=== PATIENT | female | born 1965 | race Caucasian/White ===

== ENCOUNTER 2016-11-28 16:12 | Inpatient (IN) | payer OTHER ==
[~2016-11-28] VITALS: Ht 165.1 cm; Wt 127.9 kg
[2016-11-28 16:50] LABS: microscopic required? YES; urine erythrocyte NEGATIVE (NEGATIVE)
[2016-11-28 16:51] LABS: BASOPHIL % 0.5 % (0-2); PLATELET COUNT 315 x10^3mcL (130-400)
[2016-11-28 16:59] LABS: AMPHETAMINE QUAL UR NONE DETECTED (NEG <=1000)
[2016-11-28 17:06] LABS: CALCIUM 8.9 mg/dL (8.5-10.1); CARBON DIOXIDE 26.7 mmol/L (21-32); CHLORIDE SERUM 103 mmol/L (98-107); CREATININE SERUM 1.1 mg/dL (0.6-1.0); GFR1 55 mL/min; GLUCOSE SERUM 163 mg/dL (74-106); POTASSIUM SERUM 3.9 mmol/L (3.5-5.1); SODIUM SERUM 137 mmol/L (136-145)
[2016-11-28 17:10] LABS: ALBUMIN 3.6 g/dL (3.4-5.0); ALKALINE PHOSPHATASE 64 U/L (46-116); ALT/SGPT 15 U/L (14-59); AST/SGOT 20 U/L (15-37); BILIRUBIN TOTAL 0.27 mg/dL (0.20-1.00); TOTAL PROTEIN, SERUM 7.9 g/dL (6.4-8.2)
[2016-11-28] MEDS ORDERED: METFORMIN HCL1000 MG GT (17:38)
[2016-11-28] MEDS ORDERED: INVOKAMET PO (17:38)
[2016-11-28] MEDS ORDERED: GOOD SENSE OMEP20 MG PO (17:39)
[2016-11-28] MEDS ORDERED: FERROUS SULFAT325 M2 PO (17:39)
[2016-11-28] MEDS ORDERED: LASIX40 MG PO (17:40)
[2016-11-28] MEDS ORDERED: LEVOXYL0.05 MG PO (17:40)
[2016-11-28] MEDS ORDERED: ENALAPRIL MALEA10 MG PO (17:41)
[2016-11-28] MEDS ORDERED: ZOCOR40 MG PO (17:41)
[2016-11-28] MEDS ORDERED: IBUPROFEN400 MG PO (17:42)
[2016-11-28] MEDS ORDERED: ULTRAM50 MG PO (17:42)
[2016-11-28] MEDS ORDERED: NEURONTIN400 MG PO (17:43)
[2016-11-28] MEDS ORDERED: ACT30 PO (17:44)
[2016-11-28] MEDS ORDERED: BENTYL10 MG PO (17:44)
[2016-11-28] MEDS ORDERED: VENLAFAXINE HY150 MG PO (17:46)
[2016-11-28] MEDS ORDERED: PAROXETINE HCL40 M1 PO (17:47)
[2016-11-28 18:01] VITALS: BP 126/67
[2016-11-28] MEDS ORDERED: PHOSLO667 MG PO (18:41)
[2016-11-28] MEDS ORDERED: [UNRECOGNIZED DRUG - OTHER] PO (18:41)
[2016-11-28] MEDS ORDERED: GLUCOSAMINE CH1 EAC2 PO (18:41)
[2016-11-28] MEDS ORDERED: VITAMIN D32000 I2 PO (18:42)
[2016-11-28 20:18] LABS: CHOLESTEROL/HDL RATIO 1.5; MAGNESIUM 1.6 mg/dL (1.8-2.4); PHOSPHOROUS 4.2 mg/dL (2.5-4.9)
[2016-11-28 20:25] LABS: T3 TOTAL 0.79 ng/mL
[2016-11-28 20:38] LABS: FREE T4 1.16 ng/dL (0.76-1.46); FREE THYROXINE INDEX 3.1 ug/dL (1.4-4.5); T4(THYROXINE) 8.5 ug/dL (4.7-13.3)
[2016-11-28 20:45] VITALS: BP 157/86
[2016-11-28 21:25] VITALS: BP 151/90
[2016-11-28 21:35] VITALS: BP 154/80
[2016-11-28 22:31] VITALS: BP 151/90
[2016-11-28 23:50] VITALS: BP 137/69
[2016-11-29] VITALS (17 sets, daily range): BP systolic 86–129; BP diastolic 53–71
[2016-11-29 05:32] LABS: BASOPHIL % 0.4 % (0-2); PLATELET COUNT 274 x10^3mcL (130-400); RED CELL DISTRIBUTION WIDTH 13.1 % (11.5-14.5)
[2016-11-29 05:37] LABS: CALCIUM 8.4 mg/dL (8.5-10.1); CHLORIDE SERUM 105 mmol/L (98-107); CREATININE SERUM 0.9 mg/dL (0.6-1.0); GFR1 > 60 mL/min; GLUCOSE SERUM 72 mg/dL (74-106); SODIUM SERUM 131 mmol/L (136-145)
[2016-11-30] VITALS (11 sets, daily range): BP systolic 98–153; BP diastolic 49–98
[2016-11-30 05:45] LABS: BASOPHIL % 0.3 % (0-2); PLATELET COUNT 215 x10^3mcL (130-400); RED CELL DISTRIBUTION WIDTH 13.4 % (11.5-14.5)
[2016-11-30 05:57] LABS: CALCIUM 8.2 mg/dL (8.5-10.1); CARBON DIOXIDE 22.3 mmol/L (21-32); CREATININE SERUM 1.1 mg/dL (0.6-1.0); MAGNESIUM 2.1 mg/dL (1.8-2.4); POTASSIUM SERUM 3.5 mmol/L (3.5-5.1)
[2016-12-01] VITALS (9 sets, daily range): BP systolic 104–156; BP diastolic 55–104
[2016-12-01 06:05] LABS: BASOPHIL % 0.3 % (0-2); PLATELET COUNT 242 x10^3mcL (130-400); RED CELL DISTRIBUTION WIDTH 12.9 % (11.5-14.5)
[2016-12-01 06:09] LABS: CALCIUM 8.3 mg/dL (8.5-10.1); CARBON DIOXIDE 23.1 mmol/L (21-32); CHLORIDE SERUM 105 mmol/L (98-107); GFR1 > 60 mL/min; GLUCOSE SERUM 156 mg/dL (74-106); POTASSIUM SERUM 3.6 mmol/L (3.5-5.1); SODIUM SERUM 139 mmol/L (136-145)
[2016-12-02] VITALS (14 sets, daily range): BP systolic 116–162; BP diastolic 66–89
[2016-12-02 05:39] LABS: BASOPHIL % 0.3 % (0-2); PLATELET COUNT 255 x10^3mcL (130-400); RED CELL DISTRIBUTION WIDTH 13.3 % (11.5-14.5)
[2016-12-02 05:49] LABS: CALCIUM 8.7 mg/dL (8.5-10.1); CARBON DIOXIDE 25.3 mmol/L (21-32); CREATININE SERUM 1.1 mg/dL (0.6-1.0); POTASSIUM SERUM 3.6 mmol/L (3.5-5.1)
[2016-12-03] VITALS (18 sets, daily range): BP systolic 115–140; BP diastolic 51–88
[2016-12-03 05:27] LABS: BASOPHIL % 0.1 % (0-2); PLATELET COUNT 242 x10^3mcL (130-400); RED CELL DISTRIBUTION WIDTH 12.6 % (11.5-14.5)
[2016-12-03 05:36] LABS: CALCIUM 8.3 mg/dL (8.5-10.1); CARBON DIOXIDE 24.8 mmol/L (21-32); CHLORIDE SERUM 108 mmol/L (98-107); CREATININE SERUM 0.9 mg/dL (0.6-1.0); GFR1 > 60 mL/min; GLUCOSE SERUM 173 mg/dL (74-106); POTASSIUM SERUM 3.9 mmol/L (3.5-5.1); SODIUM SERUM 141 mmol/L (136-145)
[2016-12-04] VITALS (17 sets, daily range): BP systolic 130–156; BP diastolic 63–78
[2016-12-04 05:03] LABS: PLATELET COUNT 285 x10^3mcL (130-400)
[2016-12-04 05:06] LABS: BASOPHIL % 0 % (0-2)
[2016-12-04 05:13] LABS: CALCIUM 8.3 mg/dL (8.5-10.1); CARBON DIOXIDE 26.5 mmol/L (21-32); CHLORIDE SERUM 108 mmol/L (98-107); GFR1 > 60 mL/min; GLUCOSE SERUM 220 mg/dL (74-106); POTASSIUM SERUM 3.6 mmol/L (3.5-5.1); SODIUM SERUM 142 mmol/L (136-145)
[2016-12-05] VITALS (20 sets, daily range): BP systolic 126–172; BP diastolic 63–79
[2016-12-05 05:53] LABS: BASOPHIL % 0.6 % (0-2); PLATELET COUNT 274 x10^3mcL (130-400); RED CELL DISTRIBUTION WIDTH 12.9 % (11.5-14.5)
[2016-12-05 06:04] LABS: CALCIUM 8.1 mg/dL (8.5-10.1); CARBON DIOXIDE 28.4 mmol/L (21-32); CHLORIDE SERUM 108 mmol/L (98-107); CREATININE SERUM 0.8 mg/dL (0.6-1.0); GFR1 > 60 mL/min; GLUCOSE SERUM 224 mg/dL (74-106); MAGNESIUM 1.7 mg/dL (1.8-2.4); PHOSPHOROUS 2.9 mg/dL (2.5-4.9); POTASSIUM SERUM 3.5 mmol/L (3.5-5.1); SODIUM SERUM 145 mmol/L (136-145)
[2016-12-06] VITALS (18 sets, daily range): BP systolic 121–159; BP diastolic 59–79
[2016-12-06 05:26] LABS: BASOPHIL % 0.3 % (0-2); PLATELET COUNT 273 x10^3mcL (130-400)
[2016-12-06 05:32] LABS: CALCIUM 8.1 mg/dL (8.5-10.1); CARBON DIOXIDE 29.3 mmol/L (21-32); CHLORIDE SERUM 108 mmol/L (98-107); CREATININE SERUM 0.8 mg/dL (0.6-1.0); GFR1 > 60 mL/min; GLUCOSE SERUM 234 mg/dL (74-106); POTASSIUM SERUM 3.3 mmol/L (3.5-5.1); SODIUM SERUM 142 mmol/L (136-145)
[2016-12-07] VITALS (18 sets, daily range): BP systolic 116–162; BP diastolic 62–79
[2016-12-07 05:37] LABS: CALCIUM 8.2 mg/dL (8.5-10.1); CARBON DIOXIDE 30.2 mmol/L (21-32); CHLORIDE SERUM 109 mmol/L (98-107); CREATININE SERUM 0.8 mg/dL (0.6-1.0); GFR1 > 60 mL/min; GLUCOSE SERUM 266 mg/dL (74-106); POTASSIUM SERUM 3.6 mmol/L (3.5-5.1); SODIUM SERUM 144 mmol/L (136-145)
[2016-12-07 05:39] LABS: BASOPHIL % 0.3 % (0-2); PLATELET COUNT 267 x10^3mcL (130-400)
[2016-12-08] VITALS (18 sets, daily range): BP systolic 126–171; BP diastolic 55–89
[2016-12-08 05:32] LABS: BASOPHIL % 0.4 % (0-2); PLATELET COUNT 304 x10^3mcL (130-400); RED CELL DISTRIBUTION WIDTH 13.2 % (11.5-14.5)
[2016-12-08 05:43] LABS: CALCIUM 8.3 mg/dL (8.5-10.1); CARBON DIOXIDE 31.6 mmol/L (21-32); CHLORIDE SERUM 106 mmol/L (98-107); CREATININE SERUM 0.8 mg/dL (0.6-1.0); GFR1 > 60 mL/min; GLUCOSE SERUM 255 mg/dL (74-106); MAGNESIUM 1.8 mg/dL (1.8-2.4); PHOSPHOROUS 3.9 mg/dL (2.5-4.9); POTASSIUM SERUM 3.5 mmol/L (3.5-5.1); SODIUM SERUM 144 mmol/L (136-145)
[2016-12-09] VITALS (18 sets, daily range): BP systolic 109–154; BP diastolic 39–74
[2016-12-09 05:47] LABS: BASOPHIL % 0.1 % (0-2); PLATELET COUNT 269 x10^3mcL (130-400); RED CELL DISTRIBUTION WIDTH 12.8 % (11.5-14.5)
[2016-12-09 05:49] LABS: CALCIUM 8.1 mg/dL (8.5-10.1); CARBON DIOXIDE 31.5 mmol/L (21-32); CHLORIDE SERUM 105 mmol/L (98-107); CREATININE SERUM 0.8 mg/dL (0.6-1.0); GFR1 > 60 mL/min; GLUCOSE SERUM 279 mg/dL (74-106); MAGNESIUM 1.5 mg/dL (1.8-2.4); PHOSPHOROUS 4.2 mg/dL (2.5-4.9); POTASSIUM SERUM 3.2 mmol/L (3.5-5.1); SODIUM SERUM 141 mmol/L (136-145)
[2016-12-10] VITALS (17 sets, daily range): BP systolic 119–172; BP diastolic 45–116; Ht 165.1 cm; Wt 127.9 kg
[2016-12-10 05:38] LABS: BASOPHIL % 0.4 % (0-2); PLATELET COUNT 269 x10^3mcL (130-400); RED CELL DISTRIBUTION WIDTH 12.8 % (11.5-14.5)
[2016-12-10 05:49] LABS: CALCIUM 8.1 mg/dL (8.5-10.1); CARBON DIOXIDE 32.7 mmol/L (21-32); CHLORIDE SERUM 106 mmol/L (98-107); CREATININE SERUM 0.8 mg/dL (0.6-1.0); GFR1 > 60 mL/min; GLUCOSE SERUM 242 mg/dL (74-106); MAGNESIUM 1.8 mg/dL (1.8-2.4); PHOSPHOROUS 4.5 mg/dL (2.5-4.9); POTASSIUM SERUM 3.4 mmol/L (3.5-5.1); SODIUM SERUM 144 mmol/L (136-145)
[2016-12-10] MEDS ORDERED: NIZC TOP (15:39)
[2016-12-10] MEDS ORDERED: KCL20L NG (15:40)
[2016-12-10] MEDS ORDERED: [UNRECOGNIZED DRUG - CODE] HHN (15:46)
[2016-12-10] MEDS ORDERED: IPRATROPIUM BROM3 M2 HHN (15:46)
[2016-12-10] MEDS ORDERED: IPRATROPIUM BROM3 M2 INH (15:46)
[2016-12-10] MEDS ORDERED: FERL GT (15:47)
[2016-12-10] MEDS ORDERED: HEP5I SC (15:48)
[2016-12-10] MEDS ORDERED: ATORVASTATIN CA40 M1 PO (16:06)
[2016-12-10] MEDS ORDERED: NIT0.4 SL (16:07)
[2016-12-10] MEDS ORDERED: V10 PO (16:08)
[2016-12-10] MEDS ORDERED: GABAPENTIN400 M1 PO (16:09)
[2016-12-10] MEDS ORDERED: TYL650L GT (16:09)
[2016-12-10] MEDS ORDERED: PAX20 PO (16:10)
[2016-12-10] MEDS ORDERED: SERO100 PO (16:11)
[2016-12-10] MEDS ORDERED: BG FS (16:11)
[2016-12-10] MEDS ORDERED: L40I IV (16:12)
[2016-12-10] MEDS ORDERED: PULMICORT0.5 MG/2 M IH (16:12)
[2016-12-10] MEDS ORDERED: DUL10S RC (16:13)
[2016-12-10] MEDS ORDERED: COL100UDC GT (16:13)
[2016-12-10] MEDS ORDERED: ZOFI IV (16:14)
[2016-12-10] MEDS ORDERED: LAC NG (16:16)
[2016-12-10] MEDS ORDERED: PEP20I IV (16:16)
[2016-12-10] MEDS ORDERED: LEVEMIR100 U/M1 SQ (16:22)
[2016-12-10] MEDS ORDERED: HUMULIN R100 U/1 M1 SC (16:22)
[2016-12-10] MEDS ORDERED: SOL40I IV (16:22)
[2016-12-10] MEDS ORDERED: SYN5 PO (16:23)
[2016-12-10] MEDS ORDERED: MOR10I IV (16:41)
[2016-12-10] MEDS ORDERED: ATI2I IV (16:43)
[2016-12-11] VITALS (14 sets, daily range): BP systolic 106–154; BP diastolic 53–90
== END 2016-12-11 18:55 | DRG 5 ==
LOC: ED 16:12 → IC 19:35
PROVIDERS: Family Medicine; Family Medicine Sports Medicine; ADMIT Student in an Organized Health Care Education/Training Program
PROC: 0BH17EZ Insertion of Endotracheal Airway into Trachea, Via Natural or Artificial Opening (ICD-10-PCS; principal; 2016-11-28)
PROC: 5A1945Z Respiratory Ventilation, 24-96 Consecutive Hours (ICD-10-PCS; 2016-11-28)
PROC: 5A1955Z Respiratory Ventilation, Greater than 96 Consecutive Hours (ICD-10-PCS; 2016-12-02)
PROC: 0BH17EZ Insertion of Endotracheal Airway into Trachea, Via Natural or Artificial Opening (ICD-10-PCS; 2016-12-02)
PROC: 05HM33Z Insertion of Infusion Device into Right Internal Jugular Vein, Percutaneous Approach (ICD-10-PCS; 2016-12-02)
PROC: 5A12012 Performance of Cardiac Output, Single, Manual (ICD-10-PCS; 2016-12-02)
PROC: 0BJ08ZZ Inspection of Tracheobronchial Tree, Via Natural or Artificial Opening Endoscopic (ICD-10-PCS; 2016-12-08)
PROC: 0B110F4 Bypass Trachea to Cutaneous with Tracheostomy Device, Open Approach (ICD-10-PCS; 2016-12-09)
PROC: 0DH63UZ Insertion of Feeding Device into Stomach, Percutaneous Approach (ICD-10-PCS; 2016-12-10)
DX: T40.4X2A Poisoning by other synthetic narcotics, intentional self-harm, initial encounter (principal); N17.0 Acute kidney failure with tubular necrosis; G92 Toxic encephalopathy; F33.3 Major depressive disorder, recurrent, severe with psychotic symptoms; Z68.41 Body mass index [BMI] 40.0-44.9, adult; D68.69 Other thrombophilia; R45.851 Suicidal ideations; R56.9 Unspecified convulsions; I46.9 Cardiac arrest, cause unspecified; J96.00 Acute respiratory failure, unspecified whether with hypoxia or hypercapnia; I10 Essential (primary) hypertension; E11.9 Type 2 diabetes mellitus without complications; E87.6 Hypokalemia; E83.42 Hypomagnesemia; M19.90 Unspecified osteoarthritis, unspecified site; E03.9 Hypothyroidism, unspecified; F41.9 Anxiety disorder, unspecified; E66.01 Morbid (severe) obesity due to excess calories; Y92.009 Unspecified place in unspecified non-institutional (private) residence as the place of occurrence of the external cause; Z87.891 Personal history of nicotine dependence; Z79.84 Long term (current) use of oral hypoglycemic drugs
CPT/HCPCS: 31500; 31645; 36600; 43235; 82962; 83880; 84439; 90658; A4628; C9113; G0480; J0330; J1630; J1642; J1644; J1815; J1940; J1956; J2001; J2060; J2250; J2270; J2405; J2543; J2704; J2920; J3010; J3475; J3480; J3490; J7030; J7620; J7626; Q0092

== ENCOUNTER 2017-01-14 05:47 | Emergency (ER) | payer OTHER ==
[~2017-01-14 05:47] MED LIST: ACT30 PO; ATI2I IV; ATORVASTATIN CA40 M1 PO; BENTYL10 MG PO; BG FS; COL100UDC GT; DUL10S RC; ENALAPRIL MALEA10 MG PO; FERL GT; FERROUS SULFAT325 M2 PO; GABAPENTIN400 M1 PO; GLUCOSAMINE CH1 EAC2 PO; GOOD SENSE OMEP20 MG PO; HEP5I SC; HUMULIN R100 U/1 M1 SC; IBUPROFEN400 MG PO; INVOKAMET PO; IPRATROPIUM BROM3 M2 HHN; IPRATROPIUM BROM3 M2 INH; KCL20L NG; L40I IV; LAC NG; LASIX40 MG PO; LEVEMIR100 U/M1 SQ; LEVOXYL0.05 MG PO; METFORMIN HCL1000 MG GT; MOR10I IV; NEURONTIN400 MG PO; NIT0.4 SL; NIZC TOP; PAROXETINE HCL40 M1 PO; PAX20 PO; PEP20I IV; PHOSLO667 MG PO; PULMICORT0.5 MG/2 M IH; SERO100 PO; SOL40I IV; SYN5 PO; TYL650L GT; ULTRAM50 MG PO; V10 PO; VENLAFAXINE HY150 MG PO; VITAMIN D32000 I2 PO; ZOCOR40 MG PO; ZOFI IV; [UNRECOGNIZED DRUG - CODE] HHN; [UNRECOGNIZED DRUG - OTHER] PO
[2017-01-14 07:11] LABS: BASOPHIL % 0.3 % (0-2); PLATELET COUNT 264 x10^3mcL (130-400); RED CELL DISTRIBUTION WIDTH 14.5 % (11.5-14.5)
[2017-01-14 07:35] LABS: CARBON DIOXIDE 26.7 mmol/L (21-32); CREATININE SERUM 1.8 mg/dL (0.6-1.0); POTASSIUM SERUM 4.9 mmol/L (3.5-5.1)
[2017-01-14 07:39] LABS: BILIRUBIN TOTAL 0.21 mg/dL (0.20-1.00); TOTAL PROTEIN, SERUM 6.3 g/dL (6.4-8.2)
[2017-01-14 07:41] LABS: ALBUMIN 2.9 g/dL (3.4-5.0)
[2017-01-14 08:57] VITALS: BP 139/86
== END 2017-01-14 08:57 | disposition home or self-care (01) ==
LOC: ED 05:47
PROVIDERS: Emergency Medicine
DX: R06.02 Shortness of breath (principal); I10 Essential (primary) hypertension; E11.9 Type 2 diabetes mellitus without complications; E03.9 Hypothyroidism, unspecified
CPT/HCPCS: 83880; J1940

== ENCOUNTER 2017-01-20 06:03 | Inpatient (IN) | payer OTHER ==
[~2017-01-20] VITALS: Ht 160 cm; Wt 113.9 kg
[2017-01-20] MEDS ORDERED: METFORMIN HCL1000 MG PO (07:03)
[2017-01-20] MEDS ORDERED: SIMVASTATIN40 M1 PO (07:04)
[2017-01-20] MEDS ORDERED: ACT30 PO (07:04)
[2017-01-20] MEDS ORDERED: EFFEXOR-XR150 MG PO (07:05)
[2017-01-20] MEDS ORDERED: FUROSEMIDE40 MG PO (07:06)
[2017-01-20] MEDS ORDERED: INVOKAMET1 TAB PO (07:06)
[2017-01-20] MEDS ORDERED: [UNRECOGNIZED DRUG - SUPPLY] (07:07)
[2017-01-20] MEDS ORDERED: PHOSLO667 MG (07:07)
[2017-01-20] MEDS ORDERED: PHOSLO667 MG PO (07:08)
[2017-01-20] MEDS ORDERED: LOMOTIL1 TAB PO (07:15)
[2017-01-20 08:38] LABS: microscopic required? YES; urine erythrocyte NEGATIVE (NEGATIVE)
[2017-01-20 08:45] LABS: AMPHETAMINE QUAL UR NONE DETECTED (NEG <=1000)
[2017-01-20 08:50] LABS: PLATELET COUNT 349 x10^3mcL (130-400)
[2017-01-20 08:51] LABS: BASOPHIL % 2.1 % (0-2); RED CELL DISTRIBUTION WIDTH 14.6 % (11.5-14.5)
[2017-01-20 09:09] LABS: T3 TOTAL 0.69 ng/mL
[2017-01-20 09:22] LABS: ALBUMIN 3.5 g/dL (3.4-5.0); BILIRUBIN TOTAL 0.2 mg/dL (0.20-1.00); CALCIUM 9.7 mg/dL (8.5-10.1); CARBON DIOXIDE 28.7 mmol/L (21-32); CREATININE SERUM 1.4 mg/dL (0.6-1.0); POTASSIUM SERUM 4.3 mmol/L (3.5-5.1); TOTAL PROTEIN, SERUM 7.7 g/dL (6.4-8.2)
[2017-01-20 09:33] LABS: FREE T4 1.02 ng/dL (0.76-1.46); T4(THYROXINE) 8.3 ug/dL (4.7-13.3)
[2017-01-20 09:46] LABS: MAGNESIUM 1.8 mg/dL (1.8-2.4)
[2017-01-20 09:47] LABS: CHOLESTEROL/HDL RATIO 1.9
[2017-01-20 13:36] VITALS: BP 115/53
[2017-01-20 17:15] VITALS: BP 115/43
[2017-01-20] MEDS ORDERED: XARELTO15 M1 PO (19:35)
[2017-01-20 20:27] VITALS: BP 97/50
[2017-01-20 22:08] VITALS: BP 97/50
[2017-01-21 04:41] LABS: BASOPHIL % 0.2 % (0-2); PLATELET COUNT 299 x10^3mcL (130-400); RED CELL DISTRIBUTION WIDTH 14.1 % (11.5-14.5)
[2017-01-21 04:53] LABS: CALCIUM 8.8 mg/dL (8.5-10.1); CARBON DIOXIDE 31.6 mmol/L (21-32); CREATININE SERUM 1.2 mg/dL (0.6-1.0); POTASSIUM SERUM 4.4 mmol/L (3.5-5.1)
[2017-01-21 05:12] VITALS: BP 103/51
[2017-01-21 09:36] VITALS: BP 95/40
[2017-01-21 16:08] VITALS: BP 114/54
[2017-01-21 20:10] VITALS: BP 114/48
[2017-01-22 05:03] VITALS: BP 119/61
[2017-01-22 09:13] VITALS: BP 111/49
[2017-01-22 09:53] LABS: CALCIUM 8.4 mg/dL (8.5-10.1); CARBON DIOXIDE 28.6 mmol/L (21-32); CREATININE SERUM 1.2 mg/dL (0.6-1.0); MAGNESIUM 1.5 mg/dL (1.8-2.4); PHOSPHOROUS 3.9 mg/dL (2.5-4.9); POTASSIUM SERUM 4.1 mmol/L (3.5-5.1)
[2017-01-22 09:58] LABS: BASOPHIL % 0.7 % (0-2); PLATELET COUNT 284 x10^3mcL (130-400); RED CELL DISTRIBUTION WIDTH 14.4 % (11.5-14.5)
[2017-01-22 14:30] VITALS: BP 137/58
[2017-01-22 16:55] VITALS: BP 116/82
[2017-01-22 21:44] VITALS: BP 120/55
[2017-01-22 23:05] VITALS: BP 105/44
[2017-01-23 05:49] VITALS: BP 122/52
[2017-01-23 06:44] LABS: CALCIUM 8.5 mg/dL (8.5-10.1); CARBON DIOXIDE 30.6 mmol/L (21-32); CHLORIDE SERUM 105 mmol/L (98-107); GFR1 > 60 mL/min; GLUCOSE SERUM 98 mg/dL (74-106); MAGNESIUM 1.5 mg/dL (1.8-2.4); PHOSPHOROUS 2.8 mg/dL (2.5-4.9); POTASSIUM SERUM 4.2 mmol/L (3.5-5.1); SODIUM SERUM 139 mmol/L (136-145)
[2017-01-23 07:00] LABS: BASOPHIL % 0.3 % (0-2); PLATELET COUNT 272 x10^3mcL (130-400); RED CELL DISTRIBUTION WIDTH 14.1 % (11.5-14.5)
[2017-01-23 09:00] VITALS: BP 122/52
[2017-01-23] MEDS ORDERED: XARELTO15 M1 PO (09:14)
[2017-01-23] MEDS ORDERED: EFFEXOR-XR150 MG PO (09:21)
[2017-01-23] MEDS ORDERED: BENTYL10 MG PO (09:21)
[2017-01-23 09:44] VITALS: BP 113/46
[2017-01-23] MEDS ORDERED: LOMOTIL1 TAB PO (09:47)
== END 2017-01-23 11:00 | disposition home or self-care (01) | DRG 791 ==
LOC: ED 06:03 → DU 06:44 → MU 06:44 → DU 01-22 12:48 → MU 01-23 07:12
PROVIDERS: Surgery; ADMIT Family Medicine
PROC: 0WQ60ZZ Repair Neck, Open Approach (ICD-10-PCS; principal; 2017-01-20 09:00)
DX: T81.89XA Other complications of procedures, not elsewhere classified, initial encounter (principal); N17.0 Acute kidney failure with tubular necrosis; Z68.42 Body mass index [BMI] 45.0-49.9, adult; I82.432 Acute embolism and thrombosis of left popliteal vein; E11.65 Type 2 diabetes mellitus with hyperglycemia; E66.01 Morbid (severe) obesity due to excess calories; N39.0 Urinary tract infection, site not specified; I10 Essential (primary) hypertension; M19.90 Unspecified osteoarthritis, unspecified site; D64.9 Anemia, unspecified; E03.9 Hypothyroidism, unspecified; E78.5 Hyperlipidemia, unspecified; F32.9 Major depressive disorder, single episode, unspecified; F41.9 Anxiety disorder, unspecified; Z79.84 Long term (current) use of oral hypoglycemic drugs; Z87.891 Personal history of nicotine dependence; Y83.3 Surgical operation with formation of external stoma as the cause of abnormal reaction of the patient, or of later complication, without mention of misadventure at the time of the procedure; Y92.009 Unspecified place in unspecified non-institutional (private) residence as the place of occurrence of the external cause
CPT/HCPCS: 82962; 83880; 84439; 94150; J0690; J1644; J1956; J2001; J2250; J2405; J2704; J3010; J7030; J7620; Q0092

== ENCOUNTER 2017-02-02 15:23 | Emergency (ER) | payer OTHER ==
[~2017-02-02] VITALS: Ht 160 cm; Wt 108.9 kg
[~2017-02-02 15:23] MED LIST changes: +EFFEXOR-XR150 MG PO; +FUROSEMIDE40 MG PO; +INVOKAMET1 TAB PO; +LOMOTIL1 TAB PO; +METFORMIN HCL1000 MG PO; +PHOSLO667 MG; +SIMVASTATIN40 M1 PO; +XARELTO15 M1 PO; +[UNRECOGNIZED DRUG - SUPPLY]
[2017-02-02 17:30] VITALS: BP 136/89
== END 2017-02-02 17:57 | disposition home or self-care (01) ==
LOC: ED 15:23
DX: J30.9 Allergic rhinitis, unspecified (principal); E78.00 Pure hypercholesterolemia, unspecified; F32.9 Major depressive disorder, single episode, unspecified; I10 Essential (primary) hypertension; E11.9 Type 2 diabetes mellitus without complications; Z88.8 Allergy status to other drugs, medicaments and biological substances
CPT/HCPCS: J1100

== ENCOUNTER 2017-02-17 17:41 | Observation (INO) | payer OTHER ==
[~2017-02-17] VITALS: Ht 160 cm; Wt 112.5 kg
[2017-02-17 17:47] VITALS: Ht 160 cm; Wt 112.5 kg
[2017-02-17 19:39] LABS: BASOPHIL % 0.4 % (0-2); PLATELET COUNT 285 x10^3mcL (130-400); RED CELL DISTRIBUTION WIDTH 14.2 % (11.5-14.5)
[2017-02-17 19:41] LABS: CALCIUM 8.7 mg/dL (8.5-10.1); CARBON DIOXIDE 27.4 mmol/L (21-32); CREATININE SERUM 1.2 mg/dL (0.6-1.0); POTASSIUM SERUM 4.3 mmol/L (3.5-5.1)
[2017-02-17 19:46] LABS: BILIRUBIN TOTAL 0.21 mg/dL (0.20-1.00); TOTAL PROTEIN, SERUM 6.6 g/dL (6.4-8.2)
[2017-02-17 19:47] LABS: ALBUMIN 2.9 g/dL (3.4-5.0)
[2017-02-17 20:08] LABS: microscopic required? YES; urine erythrocyte NEGATIVE (NEGATIVE)
[2017-02-17 22:12] VITALS: BP 100/42
[2017-02-17 22:12] LABS: MAGNESIUM 1.4 mg/dL (1.8-2.4); PHOSPHOROUS 2.5 mg/dL (2.5-4.9)
[2017-02-17 22:21] LABS: AMPHETAMINE QUAL UR NONE DETECTED (NEG <=1000)
[2017-02-17 22:38] LABS: T3 TOTAL 0.82 ng/mL
[2017-02-17 22:49] LABS: FREE T4 1.16 ng/dL (0.76-1.46); FREE THYROXINE INDEX 2.5 ug/dL (1.4-4.5); T4(THYROXINE) 6.9 ug/dL (4.7-13.3)
[2017-02-18 00:24] VITALS: BP 100/72
[2017-02-18 05:58] VITALS: BP 120/54
[2017-02-18 07:39] LABS: CALCIUM 8.3 mg/dL (8.5-10.1); CARBON DIOXIDE 28.4 mmol/L (21-32); CREATININE SERUM 1.2 mg/dL (0.6-1.0); POTASSIUM SERUM 4.3 mmol/L (3.5-5.1)
[2017-02-18 08:12] LABS: BASOPHIL % 0.4 % (0-2); PLATELET COUNT 261 x10^3mcL (130-400)
[2017-02-18 08:47] VITALS: BP 120/48
[2017-02-18 13:15] VITALS: BP 130/63
== END 2017-02-18 15:40 | disposition left against medical advice (07) | DRG 113 ==
LOC: ED 17:41 → DU 20:56
PROVIDERS: Emergency Medicine; Family Medicine
DX: J06.9 Acute upper respiratory infection, unspecified (principal); E44.0 Moderate protein-calorie malnutrition; I82.532 Chronic embolism and thrombosis of left popliteal vein; E11.65 Type 2 diabetes mellitus with hyperglycemia; Z68.41 Body mass index [BMI] 40.0-44.9, adult; E83.42 Hypomagnesemia; N39.0 Urinary tract infection, site not specified; G44.209 Tension-type headache, unspecified, not intractable; I10 Essential (primary) hypertension; E78.5 Hyperlipidemia, unspecified; F41.8 Other specified anxiety disorders; M19.90 Unspecified osteoarthritis, unspecified site; E03.9 Hypothyroidism, unspecified; D64.9 Anemia, unspecified; E66.01 Morbid (severe) obesity due to excess calories; Z87.891 Personal history of nicotine dependence; Z79.01 Long term (current) use of anticoagulants
CPT/HCPCS: 36600; 82962; 83880; 84439; 87804; 94150; G0378; J0696; J3475; J3490; J7030; J7620; Q0092; Q9967

== ENCOUNTER 2019-12-25 09:06 | Emergency (ER) | payer OTHER ==
[~2019-12-25] VITALS: Ht 160 cm; Wt 83.0 kg
[2019-12-25 09:20] VITALS: Ht 160 cm; Wt 83.0 kg
[2019-12-25 10:32] LABS: PLATELET COUNT 210 x10^3mcL (130-400)
[2019-12-25 10:34] LABS: RED CELL DISTRIBUTION WIDTH 15.8 % (11.5-14.5)
[2019-12-25 10:42] LABS: CALCIUM 8.3 mg/dL (8.5-10.1); CARBON DIOXIDE 26.6 mmol/L (21-32); CREATININE SERUM 1.3 mg/dL (0.6-1.0); POTASSIUM SERUM 4.4 mmol/L (3.5-5.1)
[2019-12-25 12:21] VITALS: BP 133/56
== END 2019-12-25 12:21 | disposition home or self-care (01) ==
LOC: ED 09:06
PROVIDERS: Emergency Medicine
DX: I82.4Z1 Acute embolism and thrombosis of unspecified deep veins of right distal lower extremity (principal); D64.9 Anemia, unspecified; E11.22 Type 2 diabetes mellitus with diabetic chronic kidney disease; I12.9 Hypertensive chronic kidney disease with stage 1 through stage 4 chronic kidney disease, or unspecified chronic kidney disease; N18.30 Chronic kidney disease, stage 3 unspecified; F32.9 Major depressive disorder, single episode, unspecified; E78.00 Pure hypercholesterolemia, unspecified; Z88.8 Allergy status to other drugs, medicaments and biological substances
CPT/HCPCS: J1650